=== PATIENT | male | born 1980 | race Caucasian/White ===

== ENCOUNTER 2017-11-27 16:45 | Inpatient (IN) | payer OTHER ==
[~2017-11-27] VITALS: Ht 177.8 cm; Wt 83.9 kg
[~2017-11-27 16:45] MED LIST: HYDROCODON-ACE1 EAC5 PO; HYDROCODONE-AP1 EAC6 PO; IBUPROFEN 600600 M1 PO; ROBAXIN 750 MG750 M1 PO; TRAMADOL 50 MG50 MG PO
[2017-11-27 16:46] VITALS: BP 147/109
[2017-11-27] MEDS ORDERED: ADDERALL 15 MG15 MG PO (16:52)
[2017-11-27 17:04] LABS: ABSOLUTE NEUTROPHILS 10.8 thou/uL (1.4-8.2); BASOPHILS 0.2 % (0.0-2.0); EOSINOPHILS 0.7 % (0.0-3.0); HEMATOCRIT 43.2 % (42.0-52.0); HEMOGLOBIN 14.9 gm/dL (14.0-18.0); LYMPHOCYTES 11.1 % (24.0-44.0); MCH 30.9 pg (26.0-34.0); MCHC 34.4 g/dL (28.0-37.0); MCV 89.8 fL (80.0-100.0); MONOCYTES 6.6 % (1.0-8.0); PLATELET COUNT 282 thou/uL (150-400); POLYS 81.4 % (36.0-66.0); RBC 4.81 mil/uL (4.50-6.00); RDW 13.5 % (10.5-14.5); WBC 13.2 thou/uL (4.0-11.0)
[2017-11-27 17:12] LABS: CALCIUM 9.1 mg/dL (8.5-10.1); CREATININE 1.3 mg/dL (0.7-1.3)
[2017-11-27 17:18] LABS: ALBUMIN 4.2 g/dL (3.4-5.0); TOTAL BILIRUBIN 0.2 mg/dL (<0.1-1.0); TOTAL PROTEIN 7.7 g/dL (6.4-8.2)
[2017-11-27 18:17] LABS: URINE BILIRUBIN NEGATIVE (Negative); URINE BLOOD 3+ (Negative); URINE CLARITY CLEAR; URINE COLOR YELLOW; URINE GLUCOSE-RANDOM* NEGATIVE (Negative); URINE KETONES TRACE (Negative); URINE LEUKOCYTES-REFLEX NEGATIVE (Negative); URINE NITRITE-REFLEX NEGATIVE (Negative); URINE PROTEIN (DIPSTICK) NEGATIVE (Negative); URINE UROBILINOGEN 0.2 E.U./dl (0.2-1.0)
[2017-11-27 18:29] LABS: CASTS None Seen /LPF (None Seen); MUCUS 0-3 Light strn/LPF (None Seen); SQUAMOUS None Seen /LPF (0-3); URINE RBC >20 Many /HPF (0-2); URINE WBC-REFLEX 0-5 Rare /HPF (0-5)
[2017-11-27 18:30] LABS: BACTERIA-REFLEX None Seen /HPF (None Seen); CRYSTALS None Seen /LPF (None Seen)
[2017-11-27 20:15] VITALS: BP 126/73
[2017-11-28 04:02] VITALS: BP 97/57
[2017-11-28 06:12] LABS: ALBUMIN 3.6 g/dL (3.4-5.0); CALCIUM 8.3 mg/dL (8.5-10.1); CREATININE 1.1 mg/dL (0.7-1.3); PHOSPHORUS 2.9 mg/dL (2.5-4.9); POTASSIUM 4.2 mmol/L (3.5-5.1)
[2017-11-28 07:28] VITALS: BP 103/56
[2017-11-28] MEDS ORDERED: FLOMAX0.4 MG PO (10:52)
[2017-11-28] MEDS ORDERED: HYDROCODONE-AP1 EAC6 PO (10:52)
[2017-11-28] MEDS ORDERED: MIRALAX17 GM PO (10:53)
[2017-11-28 10:58] VITALS: BP 103/56
== END 2017-11-28 12:05 | disposition home or self-care (01) | DRG 693 ==
LOC: ER 16:45 → 4E 18:38 → EROBS 18:38 → 4E 20:34 → ENTRNSPT 11-28 11:56 → EDTRNSPTSTS 11-28 11:58 → 4E 11-28 12:05
PROVIDERS: Hospitalist; Physician Assistant
DX: N13.2 Hydronephrosis with renal and ureteral calculous obstruction (principal); E43 Unspecified severe protein-calorie malnutrition; G95.89 Other specified diseases of spinal cord; F17.210 Nicotine dependence, cigarettes, uncomplicated; M19.90 Unspecified osteoarthritis, unspecified site; Z79.899 Other long term (current) drug therapy; Z68.26 Body mass index [BMI] 26.0-26.9, adult
CPT/HCPCS: 10084